=== PATIENT | female | born 1990 ===

== ENCOUNTER 2017-09-03 19:32 | Emergency (ER) | payer OTHER ==
[2017-09-03 19:52] VITALS: BMI 31.6
--- NOTE | 2017-09-03 20:41 | OBHP ---
Datetime: 09/03/2017 20:30 IP Adm Impression: Term, intrauterine ; No Active Labor IP Chief Complaint Other: Vaginal Spotting IP Adm Impression Other: No Evidence of Bleeding IP Admit Plan: Observation/Evaluation; Discharge home Admit Comment, IP Provider: 27yo with IUP at 37.3wks presents here today c/o a single episode o f vaginal spotting after wiping. She was not sure of what was happening so decided to present herself for check up. She denies any LOF and feels good movements. PNC with [facility] and pr egnancy has been uncomplicated. OBHx- , B Negative. [place]; some irritability FHR- Category 1 Speculum exam: No gross pooling, nitrazine - negative. Cx: 0/0/-3 Assessment: IUP at 37wks NST Reactive Vaginal Bleeding not found on exam. Plan: D/c Home F/U with [facility] clinic in 1 week. Pelvic Type - PN: Adequate Extremities - PN: Normal Abdomen - PN: Normal Back - PN: Normal Breast - PN: Normal Lungs - PN: Normal Heart - PN: Normal Thyroid - PN: Normal Neurologic - PN: Normal HEENT - PN: Normal General - PN: Normal Presentation-Admit: Vertex FHR - Baseline A Provider: 130 Membranes, Provider: Intact Gestation - Est Wks by US: 37.3 IP Chief Complaint: Maternal discomfort NICHD Variability Prov Fetus A: Moderate 6-25bpm NICHD Accel Fetus A IP Provider: 15X15 FHR Category Provider Fetus A: Category I NICHD Decel Fetus A IP Provider: None Dilatation, Provider: 0 Effacement, Provider: 0 Station, Provider: -3 Genitourinary Exam: Normal DTRs - PN: Normal
[2017-09-04 03:26] VITALS: BP 105/68; PULSE 117; RESP 18; TEMP 98.2; O2SAT 100
== END 2017-09-03 20:40 | disposition home or self-care (01) ==
LOC: H.EROB2 19:32
DX: O47.1 False labor at or after 37 completed weeks of gestation (principal); Z3A.37 37 weeks gestation of pregnancy; O26.853 Spotting complicating pregnancy, third trimester

== ENCOUNTER 2017-09-11 19:15 | Inpatient (IN) | payer OTHER ==
[2017-09-11] MEDS ORDERED: Phenaphthazine-PH Test Paper VI ONE (19:48)
[2017-09-11 20:03] VITALS: BMI 30.2
[2017-09-11] MEDS: Lactated Ringer's 1,000 ML IV SCH (20:20)
[2017-09-11 20:33] LABS: BASO % 0.3 % (0.0-2.0); EOS # 0.2 K/uL (0.0-0.7); EOS % 2.3 % (0.0-4.0); HEMOGLOBIN 10.3 g/dL (12.0-16.0); LYMPH # 1.6 K/uL (1.0-4.3); LYMPH % 16.5 % (20.0-40.0); MEAN CELL VOLUME 79.9 fl (81.0-99.0); MEAN CORPUSCULAR HEMOGLOBIN 27.1 pg (27.0-31.0); MEAN CORPUSCULAR HGB CONC 33.9 g/dL (33.0-37.0); MEAN PLATELET VOLUME 7.3 fl (7.2-11.7); MONO # 1.3 K/uL (0.0-0.8); MONO % 12.8 % (0.0-10.0); NEUT # 6.8 K/uL (1.8-7.0); NEUT % 68.1 % (50.0-75.0); NRBC % 0.7 % (0.0-0.0); RBC 3.81 Mil/uL (3.80-5.20); RED CELL DISTRIBUTION WIDTH 16.1 % (11.5-14.5)
--- NOTE | 2017-09-11 20:35 | OBADHP ---
Datetime: 09/11/2017 20:10 Admit Comment, IP Provider: 27 yo F at 38.4 wks GA presents with ROM. She reports that since 10 :00 she has experienced light watery discharge per vagina. Within the past 1 hour, she has noticed a steady flow to clear to mucus white discharge per vagina. GE: 09/21/17 LMP: 12/15/2016 PNC: Dr. Bejarano at [place] Last visit: Tuesday; last US: 07/08/2017 cephalic; next visit: Tuesday Positive: movement, ROM Denies: CTX, VB Significant events throughout care: Rhogam was administered at 28 weeks and verified via card. PMHX: none PSX: none FamHx: none Soc: denies: smoking, alcohol, illicit drugs Allergies to PCN: Rash, at 5 years of age. Vitals Stable Gen: AAOx3 Cardiac: S1 S2 No murmurs Pulm: CTA BL, no wheezing Abodmen: gravid, nontender, active bowel sounds CVT: none Bedside US: Cephalic position with fluid pockets noted Pelvic: Pooling of clear fluid mixed with white discharge. No blood. Nitrazine positive Cervix: 40 %, 1 cm, -3 station HIV: neg; HbsAb: neg; GBS: neg; Rubella: IM; Gc/c: neg; RPR: neg; B- PPD: neg 29 yo F , IUP at 38.4 via LMP wks presents with positive signs of ROM via positive nitrazine t est. Admit for planned augmentation of labor with cervidil IVF, CBC, type and screen, monitoring Case d/w OB attending Dr. Mega Joseph MD PGY1. Attending Note: Pt was seen and examined with resident and I agree with the above. Pelvic Type - PN: Adequate Extremities - PN: Normal Abdomen - PN: Normal Back - PN: Normal Breast - PN: Not Done Lungs - PN: Normal Heart - PN: Normal Thyroid - PN: Normal Neurologic - PN: Normal HEENT - PN: Normal General - PN: Normal FHR - Baseline A Provider: 140 Amniotic Fluid Color, Provider: Clear Membranes, Provider: Ruptured Pool Provider: Positive Nitrazine Provider: Positive Vital Signs Provider: Reviewed; Within Normal Limits IP Chief Complaint: Suspected ruptured membranes NICHD Variability Prov Fetus A: Moderate 6-25bpm NICHD Accel Fetus A IP Provider: 15X15 FHR Category Provider Fetus A: Category II NICHD Decel Fetus A IP Provider: None Dilatation, Provider: 1 Effacement, Provider: 40 Station, Provider: -3 Genitourinary Exam: Normal DTRs - PN: Not Done EGA AdmitDate IP: 38.4 IP Adm Impression: Term, intrauterine ; No Active Labor; Ruptured Membranes IP Admit Plan: Admit to unit; Initiate labor protocol; Initiate labor augmentation protocol Datetime: 09/03/2017 20:30 IP Chief Complaint Other: Vaginal Spotting IP Adm Impression Other: No Evidence of Bleeding Presentation-Admit: Vertex Gestation - Est Wks by US: 37.3
--- NOTE | 2017-09-12 10:28 | OBPN ---
Datetime: 09/12/2017 09:25 IP Progress Impression: Normal progression of labor IP Informed Consent Obtain: Vaginal Delivery IP Procedures: Sterile Vag Exam IP Progress Plan: Continue present management FHR - Baseline A Provider: 135 IP Progress Note Comment: Patient comfortable VE=FT/50/-3 KMI=[id number] mod brennen, +accels TOCO = jennifer q 3-4 mins A/P 1. Cytotec 50mcg PO q 4 hours for continued induction 2. CEFm and TOCO 3. Patient does not want anything for pain at this point Vital Signs Provider: Reviewed; Within Normal Limits NICHD Accel Fetus A IP Provider: 15X15 NICHD Variability Prov Fetus A: Moderate 6-25bpm Dilatation, Provider: FT Effacement, Provider: 50 Station, Provider: -3 NICHD Decel Fetus A IP Provider: None Datetime: 09/11/2017 22:17 Pool Provider: Positive Nitrazine Provider: Positive Membranes, Provider: Ruptured Datetime: 09/11/2017 20:15 FHR Category Provider Fetus A: Category I Datetime: 09/11/2017 20:10 Amniotic Fluid Color, Provider: Clear Datetime: 09/03/2017 20:30 Gestation - Est Wks by US: 37.3 Presentation-Admit: Vertex
[2017-09-12] MEDS: Lactated Ringer's 1,000 ML IV SCH ×4 (11:08→21:33)
[2017-09-12] MEDS ORDERED: Fentanyl/Bupivacaine HCl 250 ML EPI ONE (21:45)
[2017-09-13] MEDS: Lactated Ringer's 1,000 ML IV SCH (01:19)
[2017-09-13] MEDS ORDERED: Bupivacaine HCl 0.25% PF (10 ml) Inj ONE (04:22)
[2017-09-13] MEDS ORDERED: Lidocaine 2% Inj (20ml) ONE (07:15)
[2017-09-13] MEDS ORDERED: Oxycodone/Acetaminophen 5/325 mg Tab PO PRN ×2 (07:52→21:04)
--- NOTE | 2017-09-13 08:24 | OBDS ---
DELIVERY PERSONNEL Nurse Metal Plater Certified: jas Delivery Doctor: Dr Remington Linub Nurse: jas Naphthalene Still Operator: MARY JANE Pereira and Sandro Jordan Anesthesiologist: Dr Engel Radio Division Lieutenant: jas Resident: DR Mendoza and DR Poole MATERNAL INFORMATION Delivery Anesthesia: Epidural (Annotations: Data stored by N on behalf of user) Medications in Delivery: Pitocin Estimated Blood Loss (ml): 300 Placenta Cultured: No Maternal Complications: Premature Rupture of Membranes RN Comments: to alive baby boy;apgar9/9; placenta complete at delivery; lacerations repaired ; uneventful delivery Provider Comments: over intact perineum of live male infant, 8lbs 2oz, 9/9, mouth and nose suct ioned, cord clamped and cut, cord blood obtained, placenta delivered spontaneously, fundus firm, seco nd degree repaired with 2-0 vicry rapide, [id number], pt tolerated procedure well LABOR SUMMARY EDC: 09/21/2017 00:00 No. Babies in Womb: 1 Attempted: No Labor Anesthesia: Epidural LABOR INFORMATION Reason for Induction: Not Applicable Onset of Labor: 09/12/2017 23:00 Complete Dilatation: 09/13/2017 05:50 Cervical Ripening Agents: Cervidil; Cytotec @ Oxytocin: N/A Group B Beta Strep: Negative Antibiotics # of Doses: 0 Antibiotics Time of Last Dose: 0 Steroids Given: None Reason Steroids Not Administered: Not Applicable MEMBRANES Membranes Rupture Method: Spontaneous Rupture of Membranes: 09/11/2017 17:00 Length of Rupture (hrs): 38.58 Amniotic Fluid Color: Clear Amniotic Fluid Amount: Large Amniotic Fluid Odor: Normal STAGES OF LABOR Stage 1 hrs: 6 Stage 1 min: 50 Stage 2 hrs: 1 Stage 2 min: 45 Stage 3 hrs: 0 Stage 3 min: 3 Total Time in Labor hrs: 8 Total Time in Labor min: 38 VAGINAL DELIVERY Episiotomy: None Laceration Extension: Second Degree Laceration Type: Vaginal Other Laceration: none Laceration Repair: Yes Initial Vag Sponge Count: 6 Final Vag Sponge Count: 6 Initial Vag Sharps Count: 3 Final Vag Sharps Count: 3 Sponge Count Correct: Yes Sharps Count Correct: Yes Count Comment: coorrect count plus 10 4x4 with correct count BABY A INFORMATION Infant Delivery Date/Time: 09/13/2017 07:35 Method of Delivery: Vaginal Born in Route : No : N/A Forceps: N/A Vacuum Extraction: N/A Shoulder Dystocia : No SHOULDER DYSTOCIA BABY A Infant Delivery Date/Time: 09/13/2017 07:35 PRESENTATION/POSITION BABY A Presentation: Cephalic Cephalic Presentation: Vertex Vertex Position: Left Occipital Anterior Breech Presentation: N/A PLACENTA INFORMATION BABY A Placenta Delivery Time : 09/13/2017 07:38 Placenta Method of Delivery: Spontaneous Placenta Status: Delivered SCORES BABY A Heart Rate 1 min: >100 bpm Resp Effort 1 min: Good Cry Reflex Irritability 1 min: Cough or Sneeze or Pulls Away Muscle Tone 1 min: Active Motion Color 1 min: Body [place], Extremities Blue SCORE 1 MIN: 9 Heart Rate 5 min: >100 bpm Resp Effort 5 min: Good Cry Reflex Irritability 5 min: Cough or Sneeze or Pulls Away Muscle Tone 5 min: Active Motion Color 5 min: Body [place], Extremities Blue SCORE 5 MIN: 9 INFORMATION BABY A Gestational Age at Delivery: 38.0 Gestational Status: Term Outcome : Liveborn Infant Condition : Stable Sex: Male IDENTIFICATION/MEDS BABY A ID Band Number: [id number] ID Band Location: Right Leg; Right Arm WEIGHT/LENGTH BABY A Infant Birthweight (gms): 3685 Weight (lb): 8 Weight (oz): 2 CORD INFORMATION BABY A No. Cord Vessels: 3 Nuchal Cord : N/A Nuchal Cord Other: na True Knot: na Cord pH Baby Arterial: na Cord pH Baby Venous: na Cord Blood Taken: Yes Banking/Donate Info: na Infant Suction: Mouth; Nose; Pharynx
[2017-09-14 06:52] LABS: BASO % 0.2 % (0.0-2.0); EOS # 0.1 K/uL (0.0-0.7); EOS % 0.8 % (0.0-4.0); HEMOGLOBIN 8.6 g/dL (12.0-16.0); LYMPH # 1.8 K/uL (1.0-4.3); LYMPH % 10.7 % (20.0-40.0); MEAN CELL VOLUME 80.4 fl (81.0-99.0); MEAN CORPUSCULAR HEMOGLOBIN 26.3 pg (27.0-31.0); MEAN CORPUSCULAR HGB CONC 32.7 g/dL (33.0-37.0); MEAN PLATELET VOLUME 7.2 fl (7.2-11.7); MONO # 1.4 K/uL (0.0-0.8); MONO % 8.5 % (0.0-10.0); NEUT # 13.3 K/uL (1.8-7.0); NEUT % 79.8 % (50.0-75.0); NRBC % 0.1 % (0.0-0.0); RBC 3.27 Mil/uL (3.80-5.20); WHITE BLOOD COUNT 16.6 K/uL (4.8-10.8)
[2017-09-14] MEDS: Prenatal Multivit/Folic Acid/Iron Tab PO SCH (08:55)
[2017-09-14] MEDS ORDERED: Prenatal Multivit/Folic Acid/Iron Tab PO SCH (09:00)
--- NOTE | 2017-09-14 11:03 | OBPPN ---
Datetime: 09/14/2017 07:15 PP Pain Prov: Within normal limits PP Nausea Prov: Denies PP Flatus Prov: No PP BM Prov: No PP Breasts Prov: Not Done PP Heart Prov: Normal PP Lungs Prov: Normal PP Abdomen/Uterus Prov: Normal PP Lochia Prov: Normal PP Vulva/Perineum Prov: Not Done PP CVA Tenderness Prov: Normal PP Extremities Prov: Normal PP C/S Incision Prov: Not Applicable PP Progress Prov: Normal PP Impression Prov: Normal progression PP Plan Prov: Continue present management PP Progress Note Prov: PPD 1 S: 27 yo s/p NVD on 09/13/2017 at 07:35. Pt. is seen and examined at bedside this AM. No significant overnight events. Pt reports occasional abdominal pain, but well controlled with pain med s. Pt is ambulating without any difficulties. Breast feeding baby. Tolerating PO diet. Lochia is osman lar to light menses in volume. Voiding freely, no bowel movement or passing gas per rectum. Denies fe suleiman, chills, diarrhea, nausea, vomiting, chest pain, dyspnea, and dizziness. O: VS: stable GEN: NAD Cardio: S1S2, no M/G/R Resp: clear breath sounds b/l Abdomen: BS+, NT, Uterus is firm and at the level of the umbilicus. EXT: No edema, calves nontender NEURO/PSYCHI: AAOx3, no grossly focal deficit, preserved affect and mood. Assessment/Plan: 27 yo s/p NVD on 09/13/2017 at 07:35. Pt remains afebrile, tolerating alon n with medication, tolerating PO intake, doing well on PPD1. OOB with caution SCDs for DVT prophylaxis, pt ambulating Ibuprofen 600mg for pain. Encourage and ambulating F/u CBC post-delivery: 8.6/26.3; started on Fesol 325 mg BID Anticipated d/c to home, 09/15/2017. Case dw OB attending --- Delfino Joseph MD PGY-1 The patient was seen with the resident I agree with the notes IP PP Procedures: None Vital Signs Provider PP: Reviewed; Within Normal Limits
[2017-09-15] MEDS: Prenatal Multivit/Folic Acid/Iron Tab PO SCH (08:38)
[2017-09-15 16:52] VITALS: BP 99/65; PULSE 88; RESP 19; TEMP 97.5; O2SAT 99
== END 2017-09-15 12:20 | disposition home or self-care (01) | DRG 372 ==
LOC: H.EROB2 19:15 → H.L&D 20:03 → H.OB/GYN 09-13 15:22
PROVIDERS: ADMIT Obstetrics & Gynecology; ATTEND Obstetrics & Gynecology
PROC: 4A1HXCZ Monitoring of Products of Conception, Cardiac Rate, External Approach (ICD-10-PCS; 2017-09-11)
PROC: 10E0XZZ Delivery of Products of Conception, External Approach (ICD-10-PCS; principal; 2017-09-13)
PROC: 0KQM0ZZ Repair Perineum Muscle, Open Approach (ICD-10-PCS; 2017-09-13)
DX: O42.92 Full-term premature rupture of membranes, unspecified as to length of time between rupture and onset of labor (principal); O70.1 Second degree perineal laceration during delivery; Z88.0 Allergy status to penicillin; Z3A.38 38 weeks gestation of pregnancy; Z37.0 Single live birth